=== PATIENT | female | born 1955 | race Caucasian/White ===

== ENCOUNTER 2020-12-31 13:53 | Outpatient (CLI) | payer MEDICAID | END 2020-12-31 13:54 | disposition short-term general hospital (02) | LOC: EMS 13:53 | DX: R06.02 Shortness of breath (principal); R53.83 Other fatigue; Z20.822 Contact with and (suspected) exposure to COVID-19 | CPT/HCPCS: A0425; A0427; A0999 ==

== ENCOUNTER 2023-12-13 12:19 | Outpatient (CLI) | payer MEDICARE | END 2023-12-13 23:59 | disposition EMS.NT | LOC: EMS 12:19 | DX: Z03.89 Encounter for observation for other suspected diseases and conditions ruled out (principal) ==